=== PATIENT | female | born 1985 | race African-American/Black ===

== ENCOUNTER 2018-06-11 07:08 | Inpatient (IN) | payer OTHER ==
[~2018-06-11] VITALS: Ht 160 cm; Wt 73.0 kg
[~2018-06-11 07:08] MED LIST: SEPTRA DS TABLE1 TAB PO
[2018-06-11] MEDS ORDERED: HYDRALAZINE HCL25 MG (07:27)
[2018-06-11] MEDS ORDERED: NIFEDIPINE ER60 M1 (07:28)
[2018-06-11] MEDS ORDERED: CARVEDILOL3.125 MG (07:28)
[2018-06-11] MEDS ORDERED: HYDRALAZINE HCL50 MG (07:28)
== END 2018-06-21 17:57 | DRG 853 ==
LOC: ER 07:08 → MEDI 12:10 → ICU-2 12:10 → MEDI 06-13 17:16
PROC: 5A1D70Z Performance of Urinary Filtration, Intermittent, Less than 6 Hours Per Day (ICD-10-PCS; 2018-06-11)
PROC: 4A033R1 Measurement of Arterial Saturation, Peripheral, Percutaneous Approach (ICD-10-PCS; 2018-06-11)
PROC: B246ZZZ Ultrasonography of Right and Left Heart (ICD-10-PCS; 2018-06-11)
PROC: 3E0F7GC Introduction of Other Therapeutic Substance into Respiratory Tract, Via Natural or Artificial Opening (ICD-10-PCS; 2018-06-11)
PROC: 4A12X4Z Monitoring of Cardiac Electrical Activity, External Approach (ICD-10-PCS; 2018-06-13)
PROC: 0JBN0ZZ Excision of Right Lower Leg Subcutaneous Tissue and Fascia, Open Approach (ICD-10-PCS; principal; 2018-06-14)
PROC: B54DZZZ Ultrasonography of Bilateral Lower Extremity Veins (ICD-10-PCS; 2018-06-20)
DX: A41.9 Sepsis, unspecified organism (principal); J81.0 Acute pulmonary edema; N18.6 End stage renal disease; I16.9 Hypertensive crisis, unspecified; I12.0 Hypertensive chronic kidney disease with stage 5 chronic kidney disease or end stage renal disease; T87.43 Infection of amputation stump, right lower extremity; E87.1 Hypo-osmolality and hyponatremia; E10.22 Type 1 diabetes mellitus with diabetic chronic kidney disease; Z99.2 Dependence on renal dialysis; E10.65 Type 1 diabetes mellitus with hyperglycemia; I34.0 Nonrheumatic mitral (valve) insufficiency; R09.02 Hypoxemia; Y83.5 Amputation of limb(s) as the cause of abnormal reaction of the patient, or of later complication, without mention of misadventure at the time of the procedure; Y92.098 Other place in other non-institutional residence as the place of occurrence of the external cause; B96.1 Klebsiella pneumoniae [K. pneumoniae] as the cause of diseases classified elsewhere; B96.89 Other specified bacterial agents as the cause of diseases classified elsewhere; D69.59 Other secondary thrombocytopenia; E87.5 Hyperkalemia

== ENCOUNTER 2018-07-04 22:27 | Inpatient (IN) | payer OTHER ==
[~2018-07-04] VITALS: Ht 160 cm; Wt 73.5 kg
[~2018-07-04 22:27] MED LIST changes: +CARVEDILOL3.125 MG; +HYDRALAZINE HCL25 MG; +HYDRALAZINE HCL50 MG; +NIFEDIPINE ER60 M1
[2018-07-04] MEDS ORDERED: HUMALOG100 UNIT/1 (22:47)
[2018-07-24] MEDS ORDERED: CLONIDINE HCL0.2 MG PO (15:46)
[2018-07-24] MEDS ORDERED: HYDRALAZINE HCL50 MG PO (15:46)
[2018-07-24] MEDS ORDERED: Coreg 25MG TABLET PO (15:46)
[2018-07-24] MEDS ORDERED: AMLODIPINE BESYL5 MG PO (15:46)
== END 2018-07-24 18:01 | disposition home or self-care (01) | DRG 853 ==
LOC: ER 22:27 → SEC-K 07-05 09:13 → MEDJ 07-05 09:13 → SEC-K 07-05 11:27 → MEDJ 07-06 00:47
PROC: 3E0F7GC Introduction of Other Therapeutic Substance into Respiratory Tract, Via Natural or Artificial Opening (ICD-10-PCS; 2018-07-05)
PROC: 8E0ZXY6 Isolation (ICD-10-PCS; 2018-07-05)
PROC: 5A09457 Assistance with Respiratory Ventilation, 24-96 Consecutive Hours, Continuous Positive Airway Pressure (ICD-10-PCS; 2018-07-05)
PROC: 5A1D70Z Performance of Urinary Filtration, Intermittent, Less than 6 Hours Per Day (ICD-10-PCS; 2018-07-06)
PROC: 4A12X4Z Monitoring of Cardiac Electrical Activity, External Approach (ICD-10-PCS; 2018-07-06)
PROC: 30233N1 Transfusion of Nonautologous Red Blood Cells into Peripheral Vein, Percutaneous Approach (ICD-10-PCS; 2018-07-07)
PROC: 0JBR0ZZ Excision of Left Foot Subcutaneous Tissue and Fascia, Open Approach (ICD-10-PCS; principal; 2018-07-12)
DX: A41.9 Sepsis, unspecified organism (principal); N18.6 End stage renal disease; J81.0 Acute pulmonary edema; I12.0 Hypertensive chronic kidney disease with stage 5 chronic kidney disease or end stage renal disease; L03.115 Cellulitis of right lower limb; J91.8 Pleural effusion in other conditions classified elsewhere; E87.1 Hypo-osmolality and hyponatremia; L97.518 Non-pressure chronic ulcer of other part of right foot with other specified severity; R09.02 Hypoxemia; E11.22 Type 2 diabetes mellitus with diabetic chronic kidney disease; Z99.2 Dependence on renal dialysis; D63.1 Anemia in chronic kidney disease; B96.4 Proteus (mirabilis) (morganii) as the cause of diseases classified elsewhere; B96.89 Other specified bacterial agents as the cause of diseases classified elsewhere; E11.621 Type 2 diabetes mellitus with foot ulcer; B37.2 Candidiasis of skin and nail; D69.59 Other secondary thrombocytopenia; N93.8 Other specified abnormal uterine and vaginal bleeding; E11.65 Type 2 diabetes mellitus with hyperglycemia; A41.1 Sepsis due to other specified staphylococcus; L89.620 Pressure ulcer of left heel, unstageable

== ENCOUNTER 2018-07-31 01:44 | Inpatient (IN) | payer OTHER ==
[~2018-07-31] VITALS: Ht 160 cm; Wt 68.5 kg
[~2018-07-31 01:44] MED LIST changes: +AMLODIPINE BESYL5 MG PO; +CLONIDINE HCL0.2 MG PO; +Coreg 25MG TABLET PO; +HUMALOG100 UNIT/1; +HYDRALAZINE HCL50 MG PO
[2018-08-01] MEDS ORDERED: CARVEDILOL25 MG PO (08:40)
== END 2018-08-05 15:37 | disposition home or self-care (01) | DRG 291 ==
LOC: ER 01:44 → SEC-K 14:32 → SURG 14:32 → MEDJ 17:24 → SURG 08-01 17:19 → MEDJ 08-04 14:22
PROC: 4A033R1 Measurement of Arterial Saturation, Peripheral, Percutaneous Approach (ICD-10-PCS; principal; 2018-07-31)
PROC: 3E0F7GC Introduction of Other Therapeutic Substance into Respiratory Tract, Via Natural or Artificial Opening (ICD-10-PCS; 2018-07-31)
PROC: 5A1D70Z Performance of Urinary Filtration, Intermittent, Less than 6 Hours Per Day (ICD-10-PCS; 2018-08-01)
DX: I13.2 Hypertensive heart and chronic kidney disease with heart failure and with stage 5 chronic kidney disease, or end stage renal disease (principal); N18.6 End stage renal disease; I50.33 Acute on chronic diastolic (congestive) heart failure; E11.22 Type 2 diabetes mellitus with diabetic chronic kidney disease; Z99.2 Dependence on renal dialysis; Z91.15 Patient's noncompliance with renal dialysis; R09.02 Hypoxemia; E11.65 Type 2 diabetes mellitus with hyperglycemia

== ENCOUNTER 2018-08-07 08:51 | Emergency (ER) | payer OTHER ==
[~2018-08-07] VITALS: Ht 154.9 cm; Wt 72.1 kg
[~2018-08-07 08:51] MED LIST changes: +CARVEDILOL25 MG PO
== END 2018-08-07 12:30 | disposition home or self-care (01) ==
LOC: ER 08:51
DX: R53.1 Weakness (principal)

== ENCOUNTER 2018-08-09 06:36 | Inpatient (IN) | payer OTHER ==
[~2018-08-09] VITALS: Ht 154.9 cm; Wt 68.5 kg
== END 2018-08-11 18:51 | disposition left against medical advice (07) | DRG 291 ==
LOC: ER 06:36 → SURH 14:24 → SEC-K 14:24 → MEDI 15:38 → SEC-K 15:39 → SURH 17:10
PROC: 5A1D70Z Performance of Urinary Filtration, Intermittent, Less than 6 Hours Per Day (ICD-10-PCS; principal; 2018-08-09)
PROC: 3E0F7GC Introduction of Other Therapeutic Substance into Respiratory Tract, Via Natural or Artificial Opening (ICD-10-PCS; 2018-08-09)
PROC: 8E0ZXY6 Isolation (ICD-10-PCS; 2018-08-09)
DX: I13.2 Hypertensive heart and chronic kidney disease with heart failure and with stage 5 chronic kidney disease, or end stage renal disease (principal); J81.0 Acute pulmonary edema; N18.6 End stage renal disease; N17.8 Other acute kidney failure; E87.1 Hypo-osmolality and hyponatremia; L97.428 Non-pressure chronic ulcer of left heel and midfoot with other specified severity; L03.116 Cellulitis of left lower limb; L97.518 Non-pressure chronic ulcer of other part of right foot with other specified severity; B20 Human immunodeficiency virus [HIV] disease; I50.30 Unspecified diastolic (congestive) heart failure; E11.22 Type 2 diabetes mellitus with diabetic chronic kidney disease; Z99.2 Dependence on renal dialysis; R09.02 Hypoxemia; E11.65 Type 2 diabetes mellitus with hyperglycemia; B96.4 Proteus (mirabilis) (morganii) as the cause of diseases classified elsewhere; B96.29 Other Escherichia coli [E. coli] as the cause of diseases classified elsewhere; B96.89 Other specified bacterial agents as the cause of diseases classified elsewhere; Z16.24 Resistance to multiple antibiotics; E11.621 Type 2 diabetes mellitus with foot ulcer; Z91.15 Patient's noncompliance with renal dialysis

== ENCOUNTER 2018-08-12 05:51 | Inpatient (IN) | payer OTHER ==
[~2018-08-12] VITALS: Ht 154.9 cm; Wt 72.1 kg
== END 2018-08-17 17:47 | disposition home or self-care (01) | DRG 264 ==
LOC: ER 05:51 → MEDJ 12:47 → SURH 12:47 → MEDJ 08-14 11:25
PROC: 3E0F7GC Introduction of Other Therapeutic Substance into Respiratory Tract, Via Natural or Artificial Opening (ICD-10-PCS; 2018-08-12)
PROC: 8E0ZXY6 Isolation (ICD-10-PCS; 2018-08-12)
PROC: 0JBR0ZZ Excision of Left Foot Subcutaneous Tissue and Fascia, Open Approach (ICD-10-PCS; principal; 2018-08-16)
PROC: 5A1D70Z Performance of Urinary Filtration, Intermittent, Less than 6 Hours Per Day (ICD-10-PCS; 2018-08-16)
DX: I13.2 Hypertensive heart and chronic kidney disease with heart failure and with stage 5 chronic kidney disease, or end stage renal disease (principal); N18.6 End stage renal disease; L97.428 Non-pressure chronic ulcer of left heel and midfoot with other specified severity; N17.8 Other acute kidney failure; I50.30 Unspecified diastolic (congestive) heart failure; B20 Human immunodeficiency virus [HIV] disease; E10.621 Type 1 diabetes mellitus with foot ulcer; Z99.2 Dependence on renal dialysis; E10.22 Type 1 diabetes mellitus with diabetic chronic kidney disease; E10.65 Type 1 diabetes mellitus with hyperglycemia; D63.1 Anemia in chronic kidney disease; Z91.15 Patient's noncompliance with renal dialysis

== ENCOUNTER 2018-08-22 09:16 | Emergency (ER) | payer OTHER ==
[~2018-08-22] VITALS: Ht 160 cm; Wt 70.8 kg
== END 2018-08-22 20:20 | disposition home or self-care (01) ==
LOC: ER 09:16 → EDBD 09:24 → ER 09:24
DX: R06.02 Shortness of breath (principal); E11.9 Type 2 diabetes mellitus without complications; I10 Essential (primary) hypertension

== ENCOUNTER 2018-08-28 06:37 | Emergency (ER) | payer OTHER ==
[~2018-08-28] VITALS: Ht 160 cm; Wt 70.8 kg
== END 2018-08-28 16:43 | disposition home or self-care (01) ==
LOC: ER 06:37 → EDBD 06:48 → ER 16:43
DX: R06.02 Shortness of breath (principal)